=== PATIENT | female | born 2000 | race Caucasian/White ===

== ENCOUNTER 2024-02-13 12:53 | Outpatient (CLI) | payer MEDICAID, SELFPAY ==
--- NOTE | 2024-02-13 13:00 | CRLHL7_ITS ---
For Patients: As a result of the Cures Act, medical imaging exams and procedure reports are released immediately into your electronic medical record. You may view this report before your referring provider. If you have questions, please contact your health care provider. INDICATION: First trimester scan, establish dates. COMPARISON: None. TECHNIQUE: Real-time loza-scale imaging of the pelvis was performed. FINDINGS: Sonographic imaging demonstrates a single living intrauterine gestation. The embryo demonstrates a regular cardiac rate measuring 176 beats per minute. The embryo`s crown-rump length measurement of 2.3 cm corresponds to a gestational age of 9 weeks 0 days with a sonographic due date of 09/17/2024. There is a normal-appearing yolk sac. There are no gross abnormalities noted within the embryo at this early state of development. The gestational sac has a normal appearance. There is no evidence of a perigestational hemorrhage. The amount of fluid within the sac appears appropriate for gestational age. The cervix is closed. The myometrium appears normal. The ovaries are of normal size. Corpus luteal cyst left ovary. There are no suspicious fluid collections noted in the cul-de-sac. IMPRESSION: Normal first trimester OB ultrasound exam. Gestational age calculated at 9 weeks 0 days with a sonographic due date of 09/17/2024. Dictated by Rosalio Flood MD @ 02/15/2024 1:22:21 PM (Electronically Signed)
== END 2024-02-13 12:54 | disposition home or self-care (01) ==
LOC: US 12:54
PROVIDERS: Visit Provider Registered Nurse
DX: Z34.91 Encounter for supervision of normal pregnancy, unspecified, first trimester (principal); Z3A.09 9 weeks gestation of pregnancy
CPT/HCPCS: 76817; 80306; 82565; 82570; 84156; 84450; 84460; 84520; 86592; 86703; 86704; 86706; 86762; 86787; 86803; 86850; 86900; 86901; 87086; 87186; 87340; 87491; 87591

== ENCOUNTER 2024-02-13 14:13 | Outpatient (CLI) | payer MEDICAID, SELFPAY ==
[2024-02-13 19:12] LABS: Chlamydia DNA Amplified* NOT DETECTED (No Detected); GC DNA Amplified* NOT DETECTED (No Detected)
== END 2024-02-13 14:14 | disposition home or self-care (01) ==
PROVIDERS: Visit Provider Registered Nurse
DX: Z34.91 Encounter for supervision of normal pregnancy, unspecified, first trimester (principal); Z3A.08 8 weeks gestation of pregnancy
CPT/HCPCS: 80306; 82565; 82570; 84156; 84450; 84460; 84520; 86592; 86703; 86704; 86706; 86762; 86787; 86803; 86850; 86900; 86901; 87086; 87186; 87340; 87491; 87591

== ENCOUNTER 2024-03-12 14:39 | Outpatient (CLI) | payer MEDICAID, SELFPAY | END 2024-03-12 14:40 | disposition home or self-care (01) | PROVIDERS: Visit Provider Registered Nurse | DX: Z34.91 Encounter for supervision of normal pregnancy, unspecified, first trimester (principal); Z3A.12 12 weeks gestation of pregnancy | CPT/HCPCS: 87086 ==